=== PATIENT | female | born 1990 | race Hispanic/Latino ===

== ENCOUNTER 2017-02-18 00:26 | Emergency (ER) | payer SELFPAY ==
[2017-02-18] MEDS ORDERED: Acetaminophen/Codeine 30-300mg Tablet ONE (00:45)
[2017-02-18] MEDS ORDERED: levETIRAcetam 500 MG TAB ONE (00:45)
== END 2017-02-18 00:55 | disposition home or self-care (01) ==
LOC: NAV ERS 00:26
DX: L04.0 Acute lymphadenitis of face, head and neck (principal); J45.909 Unspecified asthma, uncomplicated; F17.200 Nicotine dependence, unspecified, uncomplicated
CPT/HCPCS: 99282